=== PATIENT | male | born 2000 | race Caucasian/White ===

== ENCOUNTER 2024-04-15 10:04 | Emergency (ER) | payer SELFPAY ==
[~2024-04-15] VITALS: Ht 172.7 cm; Wt 90.7 kg
[2024-04-15 10:16] VITALS: BP 116/70; PULSE 88; RESP 18; TEMP 97.3; O2SAT 99
[2024-04-15] MEDS ORDERED: CEPH-588 PO (10:47)
[2024-04-15 11:15] VITALS: BP 116/70; PULSE 88; RESP 18; TEMP 97.3; O2SAT 99
== END 2024-04-15 11:15 | disposition home or self-care (01) ==
LOC: MED 10:04
DX: L03.312 Cellulitis of back [any part except buttock and flank] (principal); J45.909 Unspecified asthma, uncomplicated; Z79.899 Other long term (current) drug therapy
CPT/HCPCS: 90471; 90715; 99284